=== PATIENT | female | born 1940 | race Caucasian/White ===

== ENCOUNTER 2019-04-10 08:47 | Outpatient (CLI) | payer MEDICARE ==
--- NOTE | 2019-04-10 12:29 | CT ---
CT NECK SOFT TISSUES WITH AND WITHOUT CONTRAST: (PARATHYROID PROTOCOL) DATE: 04/10/19 HISTORY: 78-year-old female with hypercalcemia, E83.52. TECHNIQUE: IV contrast: 80 mL Isovue 370 Precontrast scan, 30 second postcontrast scan, and 60 second postcontrast scan, from approximately 4 cm inferior to the neftaly to the inferior edges of the orbits. Coronal and sagittal reconstructions. FINDINGS: Attached to the posterior serosal surface of the esophagus, there is a well-circumscribed, approximat emilia 3 x 1.5 x 1 cm enhancing solid nodule with smoothly circumscribed margins. It is mobile such that on the precontrast scan, it is located on the left side, while on the postcontrast images, it moves to the right side, between the esophagus and the thoracic spine. It begins at the T1 level, and it te rminates at the upper T3 level. There is a prominent blood vessel vertically attached to the superior pole of this mass. This would be a good candidate for parathyroid adenoma. One caveat is that it merari ears to be slightly hyperdense on the noncontrast scan (suggestive of intrinsic iodine content, which would normally be seen in a thyroid adenoma rather than a parathyroid adenoma; but this mass is dist ant from the thyroid gland). (Axial image 43 of 118, series 2, 3, and 7; coronal image 59 of 89, seri es 5 and 9, and sagittal image 42 of 82, series 6 and 10.) Much more superiorly, there is an approximately 1.0 x 0.5 x 1.8 cm soft tissue density nodule, with n o intrinsic iodine, broadly abutting the left side of the far upper esophagus at the T1 level, with m oderate enhancement during the early phase scan, and fairly rapid washout on the slightly delayed pha se scan (axial image 55 of 118, series 2, 3, and 7; sagittal image 34 of 82, series 6, 33 of 79, seri es 10; and coronal image 54 of 85, series 9, and 55 of 89, series 5). This is a good candidate for pa rathyroid adenoma. It is located posterior to the lower pole of the left lobe of the thyroid gland, b ut it is separate from it by a short distance. IMPRESSION: 1. Two good candidates for parathyroid adenomas: 2. Moderately large enhancing nodule in the upper posterior mediastinum between the esophagus and th e upper thoracic vertebra. It is mobile, shifting from left to right. 3. A smaller nodule abutting the left side of the upper esophagus, posterior to the lower pole of th e left lobe of the thyroid gland. CODE T. POS: CET
== END 2019-04-10 08:48 | disposition home or self-care (01) ==
LOC: BICCT 08:47
PROVIDERS: ATTEND Otolaryngology Plastic Surgery within the Head & Neck
DX: E83.52 Hypercalcemia (principal); D36.7 Benign neoplasm of other specified sites
CPT/HCPCS: 70492; 82565

== ENCOUNTER 2019-11-28 08:05 | Outpatient (CLI) | payer MEDICARE, OTHER ==
[2019-11-28] MEDS ORDERED: Iopamidol 370 76% 100 ML VIAL ONE (10:34)
--- NOTE | 2019-11-28 12:27 | NM ---
EXAM: Nuclear medicine parathyroid scan with SPECT-CT COMPARISON: None HISTORY: Hypercalcemia TECHNIQUE: A nuclear medicine parathyroid scan with SPECT CT was performed using 24.2 mCi of techneti um 99m sestamibi. FINDINGS: Immediate and delayed images were performed. Uptake is seen in the thyroid and salivary glands. Focal uptake is seen just to the left of midline inferior to the thyroid gland. This is seen within a mass measuring approximately 3.9 cm in length that was previously seen on the CT neck. IMPRESSION: Mass adjacent to and slightly posterior to the esophagus likely represents a parathyroid adenoma.
--- NOTE | 2019-11-28 13:08 | CT ---
CT NECK WITH AND WITHOUT CONTRAST: (Parathyroid protocol) DATE: 11/28/2019 HISTORY: 78-year-old female with hyperparathyroidism, unspecified E21.3; hypercalcemia E83.52. COMPARISON: 04/10/2019. FINDINGS: Again noted are the two enhancing masses, described in detail on the previous CT report. The larger o ne, measuring 3 x 1.5 x 1 cm, sandwiched between the posterior surface of the esophagus and the anter ior upper thoracic spine vertebral body, measuring extending from the T1 level to the upper T3 level, has not changed in size. As previously mentioned, it is mobile. On the prior study, it moved from th e right side to the left side of the posterior upper mediastinum, between the different scans. On the current images, it is on the left side. Again noted, located more superiorly, is the 1 x 0.5 x 1.8 cm enhancing nodule broadly abutting the l eft side of the far upper portion of the esophagus at the T1 level. Because of the position of the two lower masses on the left side on today's scan, the two masses cont act each other, but are not connected to each other. There has been no significant interval change in sizes overall. Please read the prior report for more details. IMPRESSION: 1. Two good candidates for parathyroid adenomas: 2. One is a moderately large enhancing mass in the upper posterior mediastinum between the esophagus and the upper thoracic vertebra. It is mobile, shifting from right to left. 3. The other is a smaller nodule abutting the left side of the upper esophagus, posterior to the low er pole of the left lobe of the thyroid gland. 4. No interval change overall. POS: CET
== END 2019-11-28 08:06 | disposition home or self-care (01) ==
LOC: CT 08:05
PROVIDERS: ATTEND Otolaryngology Plastic Surgery within the Head & Neck
DX: E83.52 Hypercalcemia (principal); E21.3 Hyperparathyroidism, unspecified; D35.1 Benign neoplasm of parathyroid gland; E04.1 Nontoxic single thyroid nodule; K22.8 Other specified diseases of esophagus; J98.59 Other diseases of mediastinum, not elsewhere classified
CPT/HCPCS: 70492; 78072; 82565; A9500; Q9967